=== PATIENT | male | born 2000 | race African-American/Black ===

== ENCOUNTER 2021-06-08 10:09 | Emergency (ER) | payer SELFPAY ==
[2021-06-08] MEDS ORDERED: Ondansetron ODT 4 MG TAB ONE (12:15)
[2021-06-09 13:25] LABS: SARS-CoV-2 PCR by NAA DETECTED (NotDetected)
== END 2021-06-08 12:18 | disposition home or self-care (01) ==
LOC: CSHERS 10:09
DX: U07.1 COVID-19 (principal)
CPT/HCPCS: 87804; 99284; Q0162; U0003; U0005

== ENCOUNTER 2023-04-06 07:35 | Emergency (ER) | payer OTHER, SELFPAY ==
[2023-04-06] MEDS ORDERED: Ibuprofen 200 MG TAB ONE (08:00)
[2023-04-06 09:19] LABS: SARS-CoV-2 NAA Rapid Test Not Detected (NotDetected)
== END 2023-04-06 09:31 | disposition home or self-care (01) ==
LOC: CSHERS 07:35
DX: J06.9 Acute upper respiratory infection, unspecified (principal); R09.1 Pleurisy; F17.210 Nicotine dependence, cigarettes, uncomplicated; Z20.822 Contact with and (suspected) exposure to COVID-19
CPT/HCPCS: 71046

== ENCOUNTER 2023-04-07 08:18 | Emergency (ER) | payer BC, SELFPAY ==
[2023-04-07] MEDS ORDERED: Dexamethasone 10 MG/ML VIAL ONE (08:53)
[2023-04-07] MEDS ORDERED: Ibuprofen 200 MG TAB ONE (08:53)
[2023-04-07] MEDS ORDERED: Ipratropium/Albuterol 3 ML NEB ONE (09:21)
== END 2023-04-07 10:27 | disposition home or self-care (01) ==
LOC: CSHERS 08:18
DX: J45.901 Unspecified asthma with (acute) exacerbation (principal); F17.210 Nicotine dependence, cigarettes, uncomplicated
CPT/HCPCS: 71045; 94640; J1100; J7620